=== PATIENT | female | born 1965 | race Caucasian/White ===

== ENCOUNTER 2023-04-18 09:40 | Outpatient (CLI) | payer BC, SELFPAY | END 2023-04-18 09:41 | disposition home or self-care (01) | LOC: NFLDREF 04-20 06:48 | PROVIDERS: PCP Internal Medicine; Referring Provider Internal Medicine; Visit Provider Physician Assistant | DX: R30.0 Dysuria (principal); N39.0 Urinary tract infection, site not specified; R31.9 Hematuria, unspecified | CPT/HCPCS: 87086; 87186 ==

== ENCOUNTER 2024-04-13 18:54 | Outpatient (CLI) | payer BC, SELFPAY | END 2024-04-13 18:55 | disposition home or self-care (01) | LOC: NFLDREF 04-15 01:45 | PROVIDERS: PCP Physician Assistant; Referring Provider Physician Assistant; Visit Provider Nurse Practitioner Family | DX: N30.00 Acute cystitis without hematuria (principal); B96.20 Unspecified Escherichia coli [E. coli] as the cause of diseases classified elsewhere | CPT/HCPCS: 87086; 87186 ==